=== PATIENT | male | born 1970 | race Caucasian/White ===

== ENCOUNTER 2018-01-15 17:32 | Emergency (ER) | payer OTHER ==
[~2018-01-15] VITALS: Ht 182.9 cm; Wt 71.1 kg
[2018-01-15 18:30] LABS: HEMATOCRIT 41.1 % (38.0-50.0); HEMOGLOBIN 14.4 G/DL (12.5-16.6); MCH 31.6 PG (29.0-34.0); MCV 90.1 FL (86-99); PLATELET COUNT 312 K/uL (156-360); RBC DIS.WIDTH-CV 12.2 % (11.8-14.6); RBC DIS.WIDTH-SD 40.4 % (39-53); RED BLOOD COUNT 4.56 M/uL (4.00-5.50); WHITE BLOOD COUNT 9.6 K/uL (4.1-10.2)
[2018-01-15 18:38] LABS: CHLORIDE 103 mEq/L (99-109); SODIUM 138 mEq/L (136-147)
[2018-01-15 18:40] LABS: GLUCOSE 92 mg/dL (70-99)
[2018-01-15 18:44] LABS: GFR ESTIMATE (CALCULATED) > 59 mL/min/ (58.99-99999)
[2018-01-15 18:45] LABS: UREA NITROGEN (BUN) 10 mg/dL (9-23)
[2018-01-15 23:19] VITALS: BP 117/79
== END 2018-01-15 23:28 | disposition short-term general hospital (02) ==
LOC: EME 17:32
PROVIDERS: Nurse Practitioner Family
DX: M86.8X6 Other osteomyelitis, lower leg (principal); T87.81 Dehiscence of amputation stump; Y83.8 Other surgical procedures as the cause of abnormal reaction of the patient, or of later complication, without mention of misadventure at the time of the procedure; Z89.512 Acquired absence of left leg below knee; F17.200 Nicotine dependence, unspecified, uncomplicated; Z86.718 Personal history of other venous thrombosis and embolism
CPT/HCPCS: 73552; 80048; 85027; 87040; 99281; 99285; J0696; J2270; J3370; J7030